=== PATIENT | male | born 1990 | race Caucasian/White ===

== ENCOUNTER 2017-08-27 20:47 | Emergency (ER) | payer OTHER ==
[~2017-08-27] VITALS: Ht 182.9 cm; Wt 87.6 kg
[2017-08-27 20:58] VITALS: TEMP 36.8; Ht 182.9 cm; Wt 87.6 kg
[2017-08-27 21:40] VITALS: BP 122/68; PULSE 78; O2SAT 98
--- NOTE | 2017-08-29 16:28 | EMERGENCY ROOM VISIT NOTE ---
ED Visit Note First contact with patient: 21:01 Chief Complaint: Cut my left middle finger. History of Present Illness: Mr. Fu is a 27-year-old male who ambulates into the ED complaining of a laceration to the left middle finger. Patient reports approximately 2 hours ago he was cutting an onion for dinner and accidentally cut his left middle finger. Since that time he reports he's been trying to control bleeding. Associated with his wound he is complaining of a throbbing pain in the area of his laceration. He rates his discomfort 0.5/10. His pain is nonradiating. His pain worsens with palpation. He has not identified any alleviating factors related to the pain. He has not taken any medications for pain prior to arrival at the hospital. He denies any associated symptoms including other hand pain, other finger pain, left middle finger weakness/numbness/tingling. Review of Systems: As noted above in history of present illness. Past Medical History: Patient denies. Current Medications: Patient denies. Allergies to Medications: Patient denies. Social History: Patient is currently University student; he feels safe in his home environment; he denies tobacco and alcohol use. Tetanus Immunization Status: Patient reports 2011. Physical Examination: Vital Signs: Date Time Temp Pulse Resp B/P (MAP) Pulse Ox O2 Delivery O2 Flow Rate FiO2 08/27/17 21:40 78 16 122/68 98 08/27/17 20:58 36.8 69 18 121/67 95 Room Air GENERAL: 27-year-old male in no acute distress, nontoxic-appearing, afebrile and hemodynamically stable. NEUROLOGICAL: Awake, alert and oriented to person, place and time. Answering questions appropriately and following commands. SKIN: Warm, dry and pink. Left Hand: Over the dorsal aspect of the hand patient has a small subcentimeter superficial laceration just lateral to the fingernail and involves the lateral nailfold. There is no damage to the nail or the nailbed. Minimal active bleeding. LEFT HAND: No gross bony deformity. Soft tissue injury as noted above. Full range of motion of the DIP and the PIP joint of the index finger. Throughout the finger the skin was warm and pink and Capillary refill is brisk. He was able to distinguish light sensations through all dermatomes. ED Course: Patient is assessed as noted above. Wound Repair: Complexity: Basic Verbal consent was obtained after the risks and benefits were explained. The skin was prepped with betadine and a sterile field set. The wound was explored for foreign bodies and none found. Copious irrigation was performed using sterile saline. With direct pressure the bleeding subsided. Debridement was not performed. The wound edges were approximated using Steri-Strips. Hemostasis and excellent approximation was achieved. Antibacterial ointment and a sterile dressing applied. No complications and the patient tolerated the procedure well. Patient was educated about tonight's findings and instructed on his treatment plan; he verbalizes understanding and agreement with this plan. Clinical Impression: Laceration of the left middle finger. Disposition: Patient discharged home in stable condition. Plan: Comfort measures, wound care, and signs of infection were discussed with the patient. Patient was encouraged to follow-up with [facility] or return to the ED for signs of infection or any new/concerning symptoms.
== END 2017-08-27 21:40 | disposition home or self-care (01) ==
LOC: C.EDB 20:48 → C.EDD 21:40
DX: S61.213A Laceration without foreign body of left middle finger without damage to nail, initial encounter (principal); W26.0XXA Contact with knife, initial encounter; Y93.G3 Activity, cooking and baking